=== PATIENT | female | born 2000 | race American Indian/Alaskan Native ===

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

== ENCOUNTER 2021-08-05 08:30 | Inpatient (IN) | payer OTHER ==
[~2021-08-05] VITALS: Ht 165.1 cm; Wt 126.1 kg
[~2021-08-05 08:30] MED LIST changes: +MAPAP325 MG PO
--- NOTE | 2021-08-07 08:45 | NUR ---
08/07/21 0845 Brady,Thalia 0869 PT ARRIVED TO PACU ON RA AND AWAKE AND DENIES PAIN AND NAUSEA. IV INFUSING LR WITH 20 PIT, SITE WNL. VSS. PT UNABLE TO MOVE FEET, SPINAL EDUCATION GIVEN.
--- NOTE | 2021-08-08 09:11 | PR ---
[facility] [address] [place], [place] [address] Signed PP Progress Notes Datetime Report Generated by CPIrena: 08/08/2021 09:11 SUBJECTIVE: [id number] Pain: Within Normal Limits Nausea/Vomiting: Denies Flatus: No Vital Signs: [id number] Vital Signs: Reviewed; Within Normal Limits EXAM: Ongoing Cardiovascular: Normal Respiratory: Normal Abdomen/Uterus: Abnormal Lochia: Normal Vulva/Perineum: Not Done Breasts: Not Done CVA Tenderness: Not Done Extremities: Normal Incision: Normal Progress: Normal Exam Comments: Abdomen with active BS. Fundus firm, NT @ U-2. H/H 9.8/29.8, WBC 10.6, plat 256k IMPRESSION/PLAN/PROCEDURES: [id number] Impression: Normal Progression Other Plans: ambulate, shower, advance diet Procedures: None Progress Notes: Doing well. Will increase activity with probable discharge tomorrow. Signing Physician: Alyssia Soto MD Copies: ~ *Electronically Signed* 08/08/21910 ALYSSIA SOTO MD PATIENT NAME: MARGO ZHU PROGRESS NOTE DATE OF : [birth year] PHYSICIAN: ALYSSIA SOTO MD RPT #: [id number] REPORT IS CONFIDENTIAL AND NOT TO BE RELEASED WITHOUT AUTHORIZATION
--- NOTE | 2021-08-09 09:32 | PR ---
[facility] [address] [place] [address] [place], [place] [address] Signed PP Progress Notes Datetime Report Generated by CPN: 08/09/2021 09:32 SUBJECTIVE: [id number] Pain: Within Normal Limits Nausea/Vomiting: Denies Flatus: Yes Vital Signs: [id number] Vital Signs: Reviewed; Within Normal Limits EXAM: Ongoing Cardiovascular: Not Done Respiratory: Not Done Abdomen/Uterus: Abnormal Lochia: Normal Vulva/Perineum: Not Done Breasts: Not Done CVA Tenderness: Not Done Extremities: Normal Incision: Normal Progress: Normal Exam Comments: Abdomen with active BS. Fundus firm, NT @ U-2. IMPRESSION/PLAN/PROCEDURES: [id number] Impression: Normal Progression Plan: Discharge Other Plans: ambulate, shower, advance diet Procedures: None Progress Notes: Doing well. She is ready for D/C. Signing Physician: Alyssia Soto MD Copies: ~ *Electronically Signed* 08/09/21931 ALYSSIA SOTO MD PATIENT NAME: MARGO ZHU PROGRESS NOTE DATE OF : 98 PHYSICIAN: ALYSSIA SOTO MD RPT #: [id number] REPORT IS CONFIDENTIAL AND NOT TO BE RELEASED WITHOUT AUTHORIZATION
--- NOTE | 2021-08-12 08:07 | OR ---
[facility] [address] [place], [place] [address] Signed DATE OF OPERATION: 08/07/2021 SURGEON: Alyssia Soto MD WASTE REDUCTION COORDINATOR: Ten Luna DO. PREOPERATIVE DIAGNOSIS: 36 and 1/7th week , prior classical section. POSTOPERATIVE DIAGNOSIS: 36 and 1/7th week , prior classical section, delivered. PROCEDURE: Repeat section with low segment transverse uterine incision. ANESTHESIA: Spinal. ESTIMATED BLOOD LOSS: 600 mL. DRAINS: Hunt catheter. INDICATIONS AND FINDINGS: The patient is a 21-year-old female, 2, para 1, admitted at 36 and 1/7th weeks for a repeat section for history of prior classical . Prior delivery was at term, but for transverse lie with no lower uterine segment. At the time of the surgery, she was delivered a little girl via lower segment transverse uterine incision with Apgars of 9 and 9 and weight of 7 pounds 2 ounces. The baby was ROT. The tubes, ovaries and placenta appeared normal. The prior scar was visible, but intact. After delivery of the baby, there was a slight notch at that lower aspect of the classical incision at the intersection of the lower segment incision. DESCRIPTION OF PROCEDURE: The patient was prepped and draped in the supine position. The prior scar was excised and the incision carried down to the fascia with cautery. A fascial incision was made and the incision extended laterally with the Beck scissors. The inferior and superior fascial flaps were then created. The muscles were sharply dissected in the midline. Electronically Signed By: ALYSSIA SOTO MD 08/12/21 0807 PATIENT NAME: MARGO ZHU OPERATIVE REPORT DATE OF : 98 REPORT #: [id number] PHYSICIAN: ALYSSIA SOTO MD PCP: LIZBETH ARMIJO MD REPORT IS CONFIDENTIAL AND NOT TO BE RELEASED WITHOUT AUTHORIZATION [facility] [address] [place], [place] [address] Signed The peritoneum was elevated and incised sharply and the incision extended superiorly and inferiorly. Following this, the Siddharth retractor was placed. The incision was made just above the peritoneal reflection. The baby was delivered with the above findings and handed off to the pediatric staff in attendance. The placenta was removed manually and the uterus explored with a lap tape assuring no remaining fragments. The edges of the incision were identified and closed with a running suture of 0 Monocryl. The first layer was running locking stitch and the second was a vertical imbricating stitch. The slight notch superiorly was just incorporated into the incision. Following this, the abdomen was inspected and irrigated. There was some bleeding in the midportion, an additional [id number] suture of 0 Monocryl was placed. The bleeding on the serosal edges was controlled with cautery. Following this, the Siddharth was removed and the peritoneum identified. An ACell graft was laid over the incision to aid in healing. The peritoneum was then closed in a running suture of 3-0 Vicryl. The muscle layer had multiple bleeding points and these were controlled with cautery as well as sutures especially at the right upper fascial intersection with the muscle because of bleeding from perforators. This layer was irrigated, inspected and hemostasis was noted, but it was fairly raw. Because of this, Salvador powder was sprinkled over the muscles to aid in hemostasis. This was followed by ACell powder to aid in healing. The fascia was then closed from each angle to the midline with a running suture of 0 Vicryl. The subcu space was irrigated, inspected, and bleeding points controlled with cautery. The deep space was closed with interrupted sutures of 3-0 Vicryl. The skin was closed with keon. All sponge and needle counts were correct. She tolerated procedure well and was taken to the recovery room in good condition. Alyssia Soto MD PJW/MODL /[id number] cc: Ten Luna DO [facility] Copies: TEN LUNA DO Electronically Signed By: ALYSSIA SOTO MD 08/12/21 0807 PATIENT NAME: MARGO ZHU OPERATIVE REPORT DATE OF : 98 REPORT #: [id number] PHYSICIAN: ALYSSIA SOTO MD PCP: LIZBETH ARMIJO MD REPORT IS CONFIDENTIAL AND NOT TO BE RELEASED WITHOUT AUTHORIZATION [address] [address] Signed ~ Electronically Signed By: ALYSSIA SOTO MD 08/12/21 0807 PATIENT NAME: MARGO ZHU OPERATIVE REPORT DATE OF : [birth year] REPORT #: [id number] PHYSICIAN: ALYSSIA SOTO MD PCP: LIZBETH ARMIJO MD REPORT IS CONFIDENTIAL AND NOT TO BE RELEASED WITHOUT AUTHORIZATION
== END 2021-08-09 10:50 | disposition home or self-care (01) | DRG 788 ==
LOC: FBC 08-07 05:11
PROVIDERS: ADMIT Obstetrics & Gynecology; ATTEND Obstetrics & Gynecology
PROC: 10D00Z1 Extraction of Products of Conception, Low, Open Approach (ICD-10-PCS; principal; 2021-08-07 06:45)
DX: O34.211 Maternal care for low transverse scar from previous cesarean delivery (principal); Z3A.36 36 weeks gestation of pregnancy; Z37.0 Single live birth; O99.214 Obesity complicating childbirth; E66.9 Obesity, unspecified; O99.344 Other mental disorders complicating childbirth; Z90.49 Acquired absence of other specified parts of digestive tract; F32.9 Major depressive disorder, single episode, unspecified; F41.9 Anxiety disorder, unspecified
CPT/HCPCS: 01961; 85027; A9270; J0690; J1100; J1644; J2001; J2274; J2300; J2370; J2405; J2590; J2765; J3010; J7121; U0003